=== PATIENT | female | born 1975 ===

== ENCOUNTER 2020-10-24 10:30 | Inpatient (IN) | payer OTHER ==
[~2020-10-24] VITALS: Ht 167.6 cm; Wt 88.9 kg
[2020-10-29] MEDS ORDERED: NEURONTIN600 MG PO (07:46)
[2020-10-29] MEDS ORDERED: POLY119PG PO (07:46)
[2020-10-29] MEDS ORDERED: IBUPROFEN800 MG PO (07:46)
[2020-10-29] MEDS ORDERED: SIMETHICONE125 M1 PO (07:46)
== END 2020-10-29 11:30 | disposition home or self-care (01) | DRG 743 ==
LOC: O/R 10-27 04:31 → OB/GYN 10-27 04:31 → SURH 10-27 10:30 → OB/GYN 10-27 19:08
PROVIDERS: ADMIT Obstetrics & Gynecology; ATTEND Obstetrics & Gynecology
PROC: 0UB70ZX Excision of Bilateral Fallopian Tubes, Open Approach, Diagnostic (ICD-10-PCS; 2020-10-27)
PROC: 0UT90ZZ Resection of Uterus, Open Approach (ICD-10-PCS; principal; 2020-10-27 14:00)
DX: D25.1 Intramural leiomyoma of uterus (principal); N80.0 Endometriosis of uterus; N72 Inflammatory disease of cervix uteri; D64.9 Anemia, unspecified

== ENCOUNTER 2020-11-02 17:38 | Emergency (ER) | payer OTHER ==
[~2020-11-02] VITALS: Ht 167.6 cm; Wt 88.9 kg
[~2020-11-02 17:38] MED LIST: IBUPROFEN800 MG PO; NEURONTIN600 MG PO; POLY119PG PO; SIMETHICONE125 M1 PO
== END 2020-11-02 19:53 | disposition home or self-care (01) ==
LOC: ER 17:38
DX: L76.34 Postprocedural seroma of skin and subcutaneous tissue following other procedure (principal)